=== PATIENT | male | born 1965 ===

== ENCOUNTER 2017-11-14 14:03 | Emergency (ER) | payer MEDICAID ==
[2017-11-14 14:04] VITALS: BMI 28.7
[2017-11-14 14:22] VITALS: RESP 16; TEMP 97.6
[2017-11-14] MEDS ORDERED: Sodium Chloride 0.9% 1,000 ML IV STA ×2 (14:46)
--- NOTE | 2017-11-14 14:49 | ED PDOC ---
HPI: Abdomen Time Seen by Provider: 11/14/17 14:33 Chief Complaint (Nursing): Abdominal Pain History Per: Patient Onset/Duration Of Symptoms: Days (2) Current Symptoms Are (Timing): Still Present Severity: Moderate Pain Scale Rating Of: 4 Location Of Pain/Discomfort: LLQ Quality Of Discomfort: Aching Associated Symptoms: Nausea, Urinary Symptoms. denies: Fever Exacerbating Factors: None Alleviating Factors: None Additional Complaint(s): Left flank pain assoc with nausea x 2 days. Difficulty urinating. Denies fever. H/o kidney stones same side similar sxs. Past Medical History Vital Signs: Last Vital Signs Temp 97.6 F 11/14/17 14:20 Pulse 85 11/14/17 14:20 Resp 16 11/14/17 14:20 BP 153/93 H 11/14/17 14:20 Pulse Ox 98 11/14/17 14:49 - Medical History PMH: Back Problems, HTN, Hypercholesterolemia, Kidney Stones, Chronic Kidney Disease Denies: HIV - Family History Family History: States: Unknown Family Hx - Home Medications Home Medications: Ambulatory Orders Medication Instructions Recorded Lisinopril/Hydrochlorothiazide 1 tab PO DAILY 06/17/16 [Zestoretic 20-12.5 mg Tablet] Aspirin [Aspirin Chewable] 81 mg PO DAILY #0 chew 06/18/16 Atorvastatin [Lipitor] 20 mg PO HS #0 tab 06/18/16 Fenofibrate [Tricor] 145 mg PO DAILY #0 tab 06/18/16 Nitrofurantoin Macrocrystals 100 mg PO BID #14 cap 06/30/16 [Macrobid] Tamsulosin HCl [Flomax] 0.4 mg PO DAILY #12 cap.er.24h 06/30/16 - Allergies Allergies/Adverse Reactions: Allergies Allergy/AdvReac Type Severity Reaction Status Date / Time No Known Allergies Allergy Verified 06/17/16 12:09 Review of Systems Constitutional: Negative for: Fever Gastrointestinal: Positive for: Nausea, Abdominal Pain. Negative for: Vomiting , Diarrhea Genitourinary Male: Positive for: Hematuria Musculoskeletal: Positive for: Back Pain Physical Exam - Physical Exam Appears: Positive for: Non-toxic, No Acute Distress Skin: Positive for: Normal Color, Warm, DRY Gastrointestinal/Abdominal: Positive for: Bowel Sounds, Soft. Negative for: Tenderness, Distended Back: Negative for: L CVA Tenderness, R CVA Tenderness Extremity: Positive for: Normal ROM Neurologic/Psych: Positive for: Alert, Oriented - ECG O2 Sat by Pulse Oximetry: 98 Disposition - Clinical Impression Clinical Impression: Abdominal pain - Patient ED Disposition Is Patient to be Admitted: Transfer of Care - Disposition Disposition: Transfer of Care Disposition Time: 15:00 Condition: FAIR Forms: [employer] (Italian) Patient Signed Over To: Zuleika Kiser
--- NOTE | 2017-11-14 15:09 | ED PDOC ---
- Laboratory Results Result Diagrams: 11/14/17 15:11 11/14/17 15:11 - ECG O2 Sat by Pulse Oximetry: 98 Medical Decision Making Medical Decision Making: Time: 15:00 --Received endorsement from Dr. Amaya pending workup, reassessment, and final ER disposition Accession No. : [id number] Patient Name / ID : DANY LOWRY / [id number] Exam Date : 11/14/2017 15:07:55 ( Approved ) Study Comment : Sex / Age : M / 52Y Creator : Wilder Sandoval MD Dictator : Wilder Sandoval MD Aerotriangulation Specialist : Senior Linux Engineer : Wilder Sandoval MD Approver2 : Report Date : 11/14/2017 15:37:05 My Comment : PROCEDURE: CT Abdomen and Pelvis without intravenous contrast HISTORY: r/o kidney stone COMPARISON: CT scan of the abdomen and pelvis dated 05/08/2016. TECHNIQUE: Contiguous images were obtained from the domes of the diaphragms to the upper thighs without the administration of intravenous contrast. Oral contrast was not administered. Radiation dose: Total exam DLP = 947.3 mGy-cm. This CT exam was performed using one or more of the following dose reduction techniques: Automated exposure control, adjustment of the mA and/or kV according to patient size, and/or use of iterative reconstruction technique. FINDINGS: LOWER THORAX: Unremarkable. LIVER: Unremarkable. No gross lesion or ductal dilatation. GALLBLADDER AND BILE DUCTS: Unremarkable. PANCREAS: Unremarkable. No gross lesion or ductal dilatation. SPLEEN: Unremarkable. ADRENALS: Unremarkable. No mass. KIDNEYS AND URETERS: Left lower pole 3.0 x 2.6 centimeter simple cyst. No hydronephrosis. No solid mass. VASCULATURE: Calcific atherosclerosis. No aortic aneurysm. BOWEL: Unremarkable. No obstruction. No gross mural thickening. APPENDIX: Unremarkable. Normal appendix. PERITONEUM: Unremarkable. No free fluid. No free air. LYMPH NODES: Unremarkable. No enlarged lymph nodes. BLADDER: Unremarkable. REPRODUCTIVE: Unremarkable. BONES: No acute fracture. OTHER FINDINGS: None. IMPRESSION: No urolithiasis or evidence of recently passed genitourinary calculus. 345p Labs unremarkable, however pt still pending urine dip Pt reports hunger. 435p Bladder scan performed by RN 184ml Will increase fluid hydration (PO and IV) to promote urination. Still concern for cystitis/UTI 545p UA c/w UTI. DW pt findings and plan of care. Antibiotics and nsaids. Pt to f/u PMD next week for reevaluation. Scribe Attestation: Documented by Andrea Alvarenga, acting as a scribe for Zuleika Kiser MD. Provider Scribe Attestation: All medical record entries made by the Scribe were at my direction and personally dictated by me. I have reviewed the chart and agree that the record accurately reflects my personal performance of the history, physical exam, medical decision making, and the department course for this patient. I have also personally directed, reviewed, and agree with the discharge instructions and disposition. Disposition Counseled Patient/Family Regarding: Studies Performed, Diagnosis, Need For Followup, Rx Given - Clinical Impression Clinical Impression: Abdominal pain, Cystitis - POA Present On Arrival: None - Disposition Referrals: Fernando Krishna MD [Family Provider] - 11/17/17 Disposition: Routine/Home Disposition Time: 17:50 Condition: GOOD Prescriptions: Ciprofloxacin [Cipro] 1 tab PO BID #14 tab Ibuprofen [Motrin Tab] 600 mg PO Q8 PRN #60 tab PRN Reason: Pain, Moderate (4-7) Instructions: Urinary Tract Infection in Men (ED) Forms: [facility] ED School/Work Excuse Print Language: NIGERIEN
[2017-11-14 15:18] LABS: BASO # 0.1 K/uL (0.0-0.2); BASO % 0.9 % (0.0-2.0); EOS # 0.1 K/uL (0.0-0.7); EOS % 1.7 % (0.0-4.0); HEMOGLOBIN 13.2 g/dL (12.0-18.0); LYMPH # 2.1 K/uL (1.0-4.3); LYMPH % 26.5 % (20.0-40.0); MEAN CORPUSCULAR HEMOGLOBIN 30.7 pg (27.0-31.0); MEAN CORPUSCULAR HGB CONC 33.8 g/dL (33.0-37.0); MEAN PLATELET VOLUME 7.2 fl (7.2-11.7); MONO # 0.7 K/uL (0.0-0.8); NEUT % 61.9 % (50.0-75.0); RBC 4.3 Mil/uL (4.40-5.90); RED CELL DISTRIBUTION WIDTH 13.2 % (11.5-14.5)
--- NOTE | 2017-11-14 15:38 | CT ---
PROCEDURE: CT Abdomen and Pelvis without intravenous contrast HISTORY: r/o kidney stone COMPARISON: CT scan of the abdomen and pelvis dated 05/08/2016. TECHNIQUE: Contiguous images were obtained from the domes of the diaphragms to the upper thighs without the administration of intravenous contrast. Oral contrast was not administered. Radiation dose: Total exam DLP = 947.3 mGy-cm. This CT exam was performed using one or more of the following dose reduction techniques: Automated exposure control, adjustment of the mA and/or kV according to patient size, and/or use of iterative reconstruction technique. FINDINGS: LOWER THORAX: Unremarkable. LIVER: Unremarkable. No gross lesion or ductal dilatation. GALLBLADDER AND BILE DUCTS: Unremarkable. PANCREAS: Unremarkable. No gross lesion or ductal dilatation. SPLEEN: Unremarkable. ADRENALS: Unremarkable. No mass. KIDNEYS AND URETERS: Left lower pole 3.0 x 2.6 centimeter simple cyst. No hydronephrosis. No solid mass. VASCULATURE: Calcific atherosclerosis. No aortic aneurysm. BOWEL: Unremarkable. No obstruction. No gross mural thickening. APPENDIX: Unremarkable. Normal appendix. PERITONEUM: Unremarkable. No free fluid. No free air. LYMPH NODES: Unremarkable. No enlarged lymph nodes. BLADDER: Unremarkable. REPRODUCTIVE: Unremarkable. BONES: No acute fracture. OTHER FINDINGS: None. IMPRESSION: No urolithiasis or evidence of recently passed genitourinary calculus.
[2017-11-14 15:39] LABS: ALB/GLOB RATIO 1.1 (1.0-2.1); ALBUMIN 4.2 g/dL (3.5-5.0); ALT/SGPT 29 U/L (21-72); AST/SGOT 35 U/L (17-59); BLOOD UREA NITROGEN 10 mg/dl (9-20); CALCIUM 9.3 mg/dL (8.4-10.2); GFR AFRICAN-AMERICAN > 60; GFR NON-AFRICAN AMERICAN > 60
[2017-11-14 17:39] LABS: SQUAMOUS EPITHIAL < 1 /hpf (0-5); URINE BACTERIA RARE (<OCC); URINE BILIRUBIN NEGATIVE (NEGATIVE); URINE BLOOD MODERATE (NEGATIVE); URINE CLARITY CLEAR (Clear); URINE COLOR YELLOW (YELLOW); URINE GLUCOSE (UA) NEG (Normal); URINE HYALINE CAST 0-2 /hpf (0-2); URINE LEUKOCYTE ESTERASE TRACE Leu/uL (Negative); URINE NITRATE POSITIVE (NEGATIVE); URINE PROTEIN NEGATIVE (NEGATIVE); URINE UROBILINOGEN 0.2-1.0 mg/dL (0.2-1.0)
[2017-11-14 18:09] VITALS: BP 146/72; PULSE 70; O2SAT 99
== END 2017-11-14 18:09 | disposition home or self-care (01) ==
LOC: H.ER 14:03
DX: N39.0 Urinary tract infection, site not specified (principal); E78.00 Pure hypercholesterolemia, unspecified; I12.9 Hypertensive chronic kidney disease with stage 1 through stage 4 chronic kidney disease, or unspecified chronic kidney disease; Z79.82 Long term (current) use of aspirin; Z87.442 Personal history of urinary calculi
CPT/HCPCS: 74176; 80053; 81003; 85025; 87086; 87181; 96361; 96374; 99283; J1885; J7040

== ENCOUNTER 2018-03-01 18:09 | Emergency (ER) | payer MEDICAID ==
[2018-03-01 18:10] VITALS: BMI 28.7
[2018-03-01 18:16] VITALS: TEMP 98.1; O2SAT 98
--- NOTE | 2018-03-01 19:09 | ED PDOC ---
HPI: Abdomen Time Seen by Provider: 03/01/18 18:33 Chief Complaint (Nursing): Abdominal Pain Chief Complaint (Provider): Abdominal Pain History Per: Patient History/Exam Limitations: no limitations Onset/Duration Of Symptoms: Intermittent Episodes Current Symptoms Are (Timing): Still Present Additional Complaint(s): Patient reports sudden onset of epigastric pain that began yesterday. He states he felt a pulsating sensation in the area and noticed a lump there. Symptoms lasted a few minutes and then this morning patient had an episode of vomiting. Otherwise: (-) fever, (-) nausea, (-) diarrhea, (-) urinary symptoms, (-) chest pain, (-) SOB, (-) back pain. Denies history of prior abdominal surgeries. Patient admits he does heavy lifting often. PMD: Fernando Krishna Past Medical History Reviewed: Historical Data, Nursing Documentation, Vital Signs Vital Signs: Last Vital Signs Temp 98.1 F 03/01/18 18:14 Pulse 64 03/01/18 21:55 Resp 18 03/01/18 21:55 BP 148/79 03/01/18 21:55 Pulse Ox 98 03/01/18 21:56 - Medical History PMH: Back Problems, HTN, Hypercholesterolemia, Kidney Stones, Chronic Kidney Disease Denies: HIV - Family History Family History: States: Unknown Family Hx - Home Medications Home Medications: Ambulatory Orders Medication Instructions Recorded Lisinopril/Hydrochlorothiazide 1 tab PO DAILY 06/17/16 [Zestoretic 20-12.5 mg Tablet] Aspirin [Aspirin Chewable] 81 mg PO DAILY #0 chew 06/18/16 Atorvastatin [Lipitor] 20 mg PO HS #0 tab 06/18/16 Fenofibrate [Tricor] 145 mg PO DAILY #0 tab 06/18/16 Nitrofurantoin Macrocrystals 100 mg PO BID #14 cap 06/30/16 [Macrobid] Tamsulosin HCl [Flomax] 0.4 mg PO DAILY #12 cap.er.24h 06/30/16 Ciprofloxacin [Cipro] 1 tab PO BID #14 tab 11/14/17 Ibuprofen [Motrin Tab] 600 mg PO Q8 PRN #60 tab 11/14/17 Nitrofurantoin Macrocrystals 100 mg PO BID #14 cap 11/16/17 [Macrobid] Famotidine [Pepcid] 40 mg PO DAILY #20 tablet 03/01/18 Ondansetron ODT [Zofran ODT] 4 mg PO DAILY PRN #20 odt 03/01/18 - Allergies Allergies/Adverse Reactions: Allergies Allergy/AdvReac Type Severity Reaction Status Date / Time No Known Allergies Allergy Verified 06/17/16 12:09 Review of Systems ROS Statement: Except As Marked, All Systems Reviewed And Found Negative Constitutional: Negative for: Fever Cardiovascular: Negative for: Chest Pain Respiratory: Negative for: Shortness of Breath Gastrointestinal: Positive for: Vomiting, Abdominal Pain, Other (lump to epigastric area). Negative for: Nausea, Diarrhea Genitourinary Male: Negative for: Dysuria, Frequency, Hematuria Musculoskeletal: Negative for: Back Pain Physical Exam - Reviewed Nursing Documentation Reviewed: Yes Vital Signs Reviewed: Yes - Physical Exam Comments: GENERAL APPEARANCE: Patient is awake, alert, oriented x 3, in no acute distress. SKIN: Warm, dry; (-) cyanosis. EYES: (-) conjunctival pallor. ENMT: Mucous membranes moist. NECK: (-) tenderness, (-) stiffness, (-) lymphadenopathy. CHEST AND RESPIRATORY: (-) rales, (-) rhonchi, (-) wheezes; breath sounds equal bilaterally. HEART AND CARDIOVASCULAR: (-) irregularity; (-) murmur, (-) gallop. ABDOMEN AND GI: Soft; (+) small reducible ventral hernia, non-tender, located just above the umbilicus. (-) Pulsatile mass. EXTREMITIES: (-) deformity. Distal pulses good bilaterally. NEURO AND PSYCH: Mental status as above. Intact sensation bilaterally; normal strength in extension of the knees, plantar and dorsiflexion of the toes. - Laboratory Results Result Diagrams: 03/01/18 19:30 03/01/18 19:30 - ECG O2 Sat by Pulse Oximetry: 98 (RA) Pulse Ox Interpretation: Normal Medical Decision Making Medical Decision Making: Impression: Ventral hernia, R/O strangulation vs incarcerated hernia Time: 19:06 Plan: * CMP * Lipase * CBC * UA * Pepcid 20 mg IVP * Zofran 4 mg IVP * CT Abd/Pelvis with IV contrast LABS REVIEWED: No significant abnormalities. 21:32 CT ABDOMEN/PELVIS: FINDINGS: Lung bases: Minimal atelectasis. Mediastinum: Small hiatal hernia. Mild mural thickening vs underdistention of distal esophagus. ABDOMEN: Liver: Fatty infiltration. Gallbladder and bile ducts: No calcified stones. No ductal dilation. Pancreas: No ductal dilation. No mass. Spleen: No splenomegaly. Adrenals: No mass. Kidneys and ureters: Probable 3.7 cm LEFT renal cyst. Too small to characterize lesion within RIGHT kidney. No hydronephrosis. Stomach and bowel: No definite mural thickening. No obstruction. PELVIS: Appendix: Normal caliber. No inflammation. Bladder: Borderline bladder wall thickening, 4-5 mm. Reproductive: Mildly enlarged prostate. ABDOMEN and PELVIS: Intraperitoneal space: No significant fluid collection. No free air. Bones/joints: No acute fracture. Soft tissues: Tiny umbilical hernia containing fat. Vasculature: Mild atherosclerotic disease. No aneurysm. Lymph nodes: No pathologically enlarged lymph nodes. IMPRESSION: 1. Mild mural thickening vs underdistention of distal esophagus. Clinical correlation is needed. 2. Borderline bladder wall thickening. Clinical correlation is needed. 3. Prostate enlargement. Followup as clinically warranted. 4. Incidental/non-acute findings are described above. On reevaluation, patient is lying in bed comfortably in no acute distress. Patient has no complaints at this time. Reports no abdominal pain and nausea. On exam, abdomen remained soft, with no tenderness, no pulsatile mass, and no palpable hernia. CT and lab results discussed with the patient in great detail. Diagnosis of umbilical hernia discussed with the patient. CT also clearly states that there is no aneurysm. Radiologist called in and mentioned that he sees a mild enteritis to the small bowel, he states that the ventral hernia he sees is not new and is very tiny and not strangulated or incarcerated. Patient made aware of new CT findings and advised may have gastroenteritis. Dx of gastroenteritits d/w the pt. Based on history, exam and diagnostic results plan will be for outpatient follow -up. Advised to follow up with primary care physician in 1-2 days without fail. Return to the emergency room at any time for any new or worsening symptoms. Patient states he fully agrees with and understands discharge instructions. States that he agrees with the plan and disposition. Verbalized and repeated discharge instructions and plan. I have given the patient opportunity to ask any additional questions. Scribe Attestation: Documented by Alla Robles, acting as a scribe for Simin Hazel PA-C. Provider Scribe Attestation: All medical record entries made by the Scribe were at my direction and personally dictated by me. I have reviewed the chart and agree that the record accurately reflects my personal performance of the history, physical exam, medical decision making, and the department course for this patient. I have also personally directed, reviewed, and agree with the discharge instructions and disposition. Disposition - Clinical Impression Clinical Impression: Abdominal pain, Umbilical hernia, Gastroenteritis - Patient ED Disposition Is Patient to be Admitted: No Counseled Patient/Family Regarding: Studies Performed, Diagnosis, Need For Followup - Disposition Referrals: Patrice Krishna MD [Staff Provider] - Disposition: Routine/Home Disposition Time: 21:45 Condition: STABLE Additional Instructions: Thank you for letting us take care of you today. You were treated for abdominal pain, umbilical hernia. The emergency medical care you received today was directed at your acute symptoms. Return to the Emergency Department if your symptoms worsen, do not improve, or if you have any other problems. Please contact your doctor in 2 days for re-evaluation and follow up / or call one of the physicians/clinics you have been referred to that are listed on the Patient Visit Information form that is included in your discharge packet. Bring any paperwork you were given at discharge with you along with any medications you are taking to your follow up visit. Our treatment cannot replace ongoing medical care by a primary care provider (PCP) outside of the emergency department. Thank you for allowing the [email or web address] team to be part of your care today. If you had CT scan: A Radiologist will review the ED reading if any change in treatment is needed we will contact you. Prescriptions: Famotidine [Pepcid] 40 mg PO DAILY #20 tablet Ondansetron ODT [Zofran ODT] 4 mg PO DAILY PRN #20 odt PRN Reason: Nausea/Vomiting Instructions: Viral Gastroenteritis, Umbilical Hernia, Adult Forms: [employer] (Greek), [facility] ED School/Work Excuse Print Language: STATELESS
[2018-03-01 19:56] LABS: BASO # 0.1 K/uL (0.0-0.2); BASO % 0.9 % (0.0-2.0); EOS # 0.2 K/uL (0.0-0.7); EOS % 2.1 % (0.0-4.0); HEMOGLOBIN 13.5 g/dL (12.0-18.0); LYMPH # 3.7 K/uL (1.0-4.3); LYMPH % 37.3 % (20.0-40.0); MEAN CELL VOLUME 92.1 fl (80.0-94.0); MEAN CORPUSCULAR HEMOGLOBIN 31.4 pg (27.0-31.0); MEAN CORPUSCULAR HGB CONC 34.2 g/dL (33.0-37.0); MEAN PLATELET VOLUME 7.4 fl (7.2-11.7); MONO # 0.8 K/uL (0.0-0.8); MONO % 8.1 % (0.0-10.0); NEUT # 5.1 K/uL (1.8-7.0); NEUT % 51.6 % (50.0-75.0); RBC 4.28 Mil/uL (4.40-5.90); RED CELL DISTRIBUTION WIDTH 13.8 % (11.5-14.5); WHITE BLOOD COUNT 9.9 K/uL (4.8-10.8)
[2018-03-01 20:00] LABS: URINE BILIRUBIN NEGATIVE (NEGATIVE); URINE BLOOD SMALL (NEGATIVE); URINE CLARITY CLEAR (Clear); URINE COLOR STRAW (YELLOW); URINE GLUCOSE (UA) NEG (Normal); URINE LEUKOCYTE ESTERASE NEG Leu/uL (Negative); URINE PROTEIN NEGATIVE (NEGATIVE); URINE UROBILINOGEN 0.2-1.0 mg/dL (0.2-1.0)
[2018-03-01 20:12] LABS: ALB/GLOB RATIO 1.1 (1.0-2.1); ALT/SGPT 49 U/L (21-72); AST/SGOT 38 U/L (17-59); BLOOD UREA NITROGEN 13 mg/dl (9-20); CALCIUM 9.7 mg/dL (8.4-10.2); GFR AFRICAN-AMERICAN > 60; GFR NON-AFRICAN AMERICAN > 60; LIPASE 74 U/L (23-300)
[2018-03-01] MEDS ORDERED: Sodium Chloride 0.9% 100 ML ONE (20:42)
[2018-03-01] MEDS ORDERED: Iohexol 300 100 ML IJ ONE (20:42)
--- NOTE | 2018-03-01 21:33 | CT ---
EXAM: CT Abdomen and Pelvis With Intravenous Contrast CLINICAL HISTORY: 52 years old, male; Pain; Abdominal pain; Epigastric; Patient HX: Patient states: HX of renal stones; Additional info: Epigastric pain, ? hernia TECHNIQUE: Axial computed tomography images of the abdomen and pelvis with intravenous contrast. All CT scans at this facility use one or more dose reduction techniques, viz.: automated exposure control; ma/kV adjustment per patient size (including targeted exams where dose is matched to indication; i.e. head); or iterative reconstruction technique. Coronal and sagittal reformatted images were created and reviewed. CONTRAST: 90 mL of [id number] administered intravenously. COMPARISON: CT - ABD PELVIS W/O PO OR IV CONT 2017-11-14 15:07 FINDINGS: Lung bases: Minimal atelectasis. Mediastinum: Small hiatal hernia. Mild mural thickening vs underdistention of distal esophagus. ABDOMEN: Liver: Fatty infiltration. Gallbladder and bile ducts: No calcified stones. No ductal dilation. Pancreas: No ductal dilation. No mass. Spleen: No splenomegaly. Adrenals: No mass. Kidneys and ureters: Probable 3.7 cm LEFT renal cyst. Too small to characterize lesion within RIGHT kidney. No hydronephrosis. Stomach and bowel: No definite mural thickening. No obstruction. PELVIS: Appendix: Normal caliber. No inflammation. Bladder: Borderline bladder wall thickening, 4-5 mm. Reproductive: Mildly enlarged prostate. ABDOMEN and PELVIS: Intraperitoneal space: No significant fluid collection. No free air. Bones/joints: No acute fracture. Soft tissues: Tiny umbilical hernia containing fat. Vasculature: Mild atherosclerotic disease. No aneurysm. Lymph nodes: No pathologically enlarged lymph nodes. IMPRESSION: 1. Mild mural thickening vs underdistention of distal esophagus. Clinical correlation is needed. 2. Borderline bladder wall thickening. Clinical correlation is needed. 3. Prostate enlargement. Followup as clinically warranted. 4. Incidental/non-acute findings are described above.
[2018-03-01 22:02] VITALS: BP 148/79; PULSE 64; RESP 18
== END 2018-03-01 22:02 | disposition home or self-care (01) ==
LOC: H.ER 18:09
DX: R10.13 Epigastric pain (principal); K42.9 Umbilical hernia without obstruction or gangrene; K52.9 Noninfective gastroenteritis and colitis, unspecified; N18.9 Chronic kidney disease, unspecified; Z87.442 Personal history of urinary calculi; Z79.82 Long term (current) use of aspirin
CPT/HCPCS: 74177; 80053; 81003; 83690; 85025; 96374; 99283; Q9967